=== PATIENT | male | born 1975 | race Caucasian/White ===

== ENCOUNTER 2021-08-17 11:47 | Emergency (ER) | payer OTHER, SELFPAY ==
[2021-08-17 13:16] VITALS: BP 143/97; PULSE 99; RESP 18; TEMP 36.3; O2SAT 100
--- NOTE | 2021-08-17 13:48 | ED.URI ---
HPI - URI/Sore Throat General Chief Complaint: Upper Respiratory Infection Stated Complaint: cough,fatigue,dizziness Time Seen by Provider: 08/17/21 13:49 Source: patient, RN notes reviewed and old records reviewed Mode of arrival: ambulatory Limitations: no limitations History of Present Illness HPI Narrative: 46-year-old male presents to [facility] with complaints of cough, fatigue, headache, some sinus drainage and congestion with pressure. Patient states had Covid on July 28 he was tested on the and he was negative but started feeling bad on the so maintained quarantine and worked from home. He states that cough continues with fatigue, sinus congestion pressure and drainage as main complaints. Patient has had COVID vaccinations and booster and also flu shot.Patient has been taking Mucinex, Tylenol and Flonase for his symptoms. MD elicited complaint: cough and other (Fatigue and dizziness, sinus drainage) Related Data Home Medications Medication Instructions Recorded Confirmed desvenlafaxine succinate 25 mg PO DAILY 08/17/21 08/17/21 Allergies Allergy/AdvReac Type Severity Reaction Status Date / Time No Known Allergies Allergy Mild Verified 08/17/21 13:59 Review of Systems Review of Systems: CONSTITUTIONAL: Denies fever, chills, or sweats. EYES: Denies visual changes, redness, or discharge. ENT: Positive for rhinorrhea, congestion,sinus pain and pressure, sore throat, no otalgia. CARDIOVASCULAR: Denies chest pain, palpitations, or edema. RESPIRATORY:Positive for cough denies dyspnea. GASTROINTESTINAL: Denies abdominal pain, nausea, vomiting, or diarrhea. GENITOURINARY: Denies dysuria or hematuria. SKIN: Denies rash or itching. MUSCULOSKELETAL: Denies back pain, joint pain, or myalgia.reports fatigue NEUROLOGIC: Positive for headache,no numbness, or weakness. PSYCHIATRIC: Positive history of anxiety or depression. All systems reviewed & are unremarkable except as noted in HPI and below PMFSH Past Medical History Medical History (Updated 08/17/21 @ 23:21 by Rubia Davis NP) Anxiety and depression GERD (gastroesophageal reflux disease) Migraine Sleep apnea, unspecified Surgical History Surgical History (Updated 08/17/21 @ 23:18 by Rubia Davis NP) History of surgery on arm left Family History Family History Father Hypertension Social History Social History Smoking status: Never smoker Alcohol intake: current Comments At time of signature, agree with nursing past medical, surgical, social and family history. There is no relevant family history pertinent to the presenting complaint Exam Narrative: GENERAL:Ill-appearing, well-nourished, and in no acute distress. HEAD: Normocephalic, atraumatic. EYES: PERRLA and EOMI. ENT: Nares red with swollen turbinates, clear rhinorrhea no epistaxis. Mucous membranes moist.TM's normal with good light reflex, throat red with no lesions or exudates or tonsil enlargement post nasal drainage present. NECK: Supple.no lymphadenopathy CHEST: Clear to auscultation. No respiratory distress.cough harsh with SAO2 100% on room air. HEART: Regular rate and rhythm. No murmur heard. Normal peripheral pulses. ABDOMEN: Soft, nontender, nondistended, normal active bowel sounds. EXTREMITIES: Normal range of motion. No edema. SKIN: Warm, dry, no rash. NEURO: No focal deficits. Alert and oriented x3. Course Course Level of Care: Express Care Visit Vital Signs Vital signs: Vital Signs Temperature 36.3 C L 08/17/21 13:16 Pulse Rate 99 08/17/21 13:16 Respiratory Rate 18 08/17/21 13:16 Blood Pressure 143/97 H 08/17/21 13:16 Pulse Oximetry 100 08/17/21 13:16 Temperature 36.3 C L 08/17/21 13:16 Pulse Rate 99 08/17/21 13:16 Respiratory Rate 18 08/17/21 13:16 Blood Pressure 143/97 H 08/17/21 13:16 Pulse Oximetry
== END 2021-08-17 14:30 | disposition home or self-care (01) ==
PROVIDERS: Emergency Provider Registered Nurse; PCP Family Medicine
DX: R05.9 Cough, unspecified (principal); J01.40 Acute pansinusitis, unspecified; Z20.822 Contact with and (suspected) exposure to COVID-19; K21.9 Gastro-esophageal reflux disease without esophagitis; G47.30 Sleep apnea, unspecified; F32.9 Major depressive disorder, single episode, unspecified
CPT/HCPCS: 87426; 99213; C9803; G0463

== ENCOUNTER 2022-01-21 10:34 | Emergency (ER) | payer OTHER, SELFPAY ==
--- NOTE | ~2022-01-21 | XR_ITS ---
EXAMINATION: XR abdomen obstructive series DATE: 01/21/2022 11:53 INDICATION: Right abdominal pain. TECHNIQUE: Upright and supine views of the abdomen on 3 radiographs were obtained. COMPARISON: Abdomen radiographs 07/31/2006 FINDINGS: There are no dilated loops of bowel. There is a moderate volume of stool in the colon. Calc ifications in the pelvis are likely phleboliths. No free intraperitoneal gas. IMPRESSION: 1. Normal bowel gas pattern. Reviewed, dictated and finalized at location B.
[2022-01-21 11:07] VITALS: BP 140/89; PULSE 99; RESP 18; TEMP 37.3; O2SAT 99
--- NOTE | 2022-01-21 11:11 | ED.ABDPAIN ---
HPI - Abdominal Pain General Chief Complaint: Abdominal Pain Stated Complaint: abdominal pain Time Seen by Provider: 01/21/22 11:12 Source: patient Mode of arrival: ambulatory Limitations: no limitations History of Present Illness HPI narrative: Mr. Cortez is a 46-year-old male patient presenting to the clinic today with complaints of right lower quadrant abdominal pain x5 days He reports the pain improved over the last 2 days but got worse today. He reports that the pain is a dull ache into the right lower quadrant. States when he palpates his abdomen it hurts in the right lower quadrant and some in the right upper quadrant. He reports having normal bowel movements. Last bowel movement was this morning. No blood in his stools. He denies any fever or chills. He denies any nausea, vomiting, or diarrhea. He is passing gas. Related Data Home Medications Medication Instructions Recorded Confirmed desvenlafaxine succinate 50 mg 1 tablet PO DAILY 01/21/22 01/21/22 tablet,extended release 24 hr Allergies Allergy/AdvReac Type Severity Reaction Status Date / Time No Known Allergies Allergy Mild Verified 01/21/22 11:03 Review of Systems Review of Systems: Pertinent positives per HPI. Patient denies any fever, chills, rash, headache, visual changes, dizziness, cough, runny nose, sore throat, shortness of breath, chest pain, palpitations, nausea, vomiting, diarrhea, constipation, or any urinary issues. [facility] Past Medical History Medical History Anxiety and depression GERD (gastroesophageal reflux disease) Migraine Sleep apnea, unspecified Surgical History Surgical History History of surgery on arm left Family History Family History Father Hypertension Social History Social History Smoking status: Never smoker Alcohol intake: current Comments At the time of my signature, I reviewed and agree with the nursing past medical, surgical, social, and family history. There is no relevant family history pertinent to the patient complaint. Exam Narrative: General: Well-developed, obese, in no apparent distress. Head: Normocephalic, atraumatic. Cardio: Regular rate and rhythm, s1 and s2 normal, no murmur appreciated. Resp: Clear to auscultation bilaterally, no rhonchi, rales, wheezing or rubs. Abdomen: Soft, pliable, bowel sounds present in all quadrants, tender to palpation over the right lower quadrant and mildly over the right upper quadrant, no organomegly, no CVAT tenderness. Course Course Emergency Course: Portions of this record may have been created with voice recognition software. Level of Care: Express Care Visit Vital Signs Vital signs: Vital Signs Temperature 37.3 C 01/21/22 11:07 Pulse Rate 99 01/21/22 11:07 Respiratory Rate 18 01/21/22 11:07 Blood Pressure 140/89 01/21/22 11:07 Pulse Oximetry 99 01/21/22 11:07 Oxygen Delivery Room Air 01/21/22 11:07 Temperature 37.3 C 01/21/22 11:07 Pulse Rate 99 01/21/22 11:07 Respiratory Rate 18 01/21/22 11:07 Blood Pressure 140/89 01/21/22 11:07 Pulse Oximetry 99 01/21/22 11:07 Oxygen Delivery Room Air 01/21/22 11:07 Vital signs reviewed Transfer Transfered to: [facility]: Other (Private car) Transfer rationale: Right lower quadrant abdominal pain rule out appendicitis Accepting physician: Dr. Locke Transfer comments: Transferred via private car MDM - Abdominal Pain MDM Narrative Medical decision making narrative: At the time of visit patient is resting comfortably on the exam table. He is reporting right lower quadrant pain approximately a 5 out of 10 currently dull aching. UA was obtained and showed a trace of protein however no
== END 2022-01-21 12:23 | disposition short-term general hospital (02) ==
PROVIDERS: Emergency Provider Nurse Practitioner Family; PCP Family Medicine
DX: R10.31 Right lower quadrant pain (principal); K21.9 Gastro-esophageal reflux disease without esophagitis; G47.30 Sleep apnea, unspecified; F41.9 Anxiety disorder, unspecified; F32.A Depression, unspecified
CPT/HCPCS: 74019; 81003; 99213; G0463

== ENCOUNTER 2022-01-21 12:37 | Emergency (ER) | payer OTHER, SELFPAY ==
--- NOTE | ~2022-01-21 | US_ITS ---
EXAMINATION: US abdomen limited DATE: 01/21/2022 16:06 INDICATION: Right abdominal pain. TECHNIQUE: Multiple grayscale and Doppler ultrasound images of the abdomen were obtained. COMPARISON: CT abdomen and pelvis 01/21/2022 FINDINGS: The visualized portions of the head and body of the pancreas are normal. There is diffuse h epatic steatosis. No liver surface nodularity. There is normal flow in main portal vein. The gallblad juhi is normal in size. No gallstones or gallbladder wall thickening. There was no sonographic Lee sign. The common duct is normal and measures 4 mm. IMPRESSION: 1. Diffuse hepatic steatosis. Reviewed, dictated and finalized at location B.
--- NOTE | ~2022-01-21 | CT_ITS ---
EXAMINATION: CT abdomen pelvis wo con DATE: 01/21/2022 14:55 INDICATION: Right lower quadrant abdominal pain TECHNIQUE: Computed tomography (CT) of the abdomen and pelvis was performed without intravenous contr ast. Automated exposure control and iterative reconstruction technique were employed. Exam dose: 124 0.08 mGy-cm total exam DLP. COMPARISON: 01/21/2022 obstructive series and or FINDINGS: Bilateral calcified pulmonary lungs. Included lower lung zones are clear of infiltrate or c onsolidation. Normal heart size. No pericardial or pleural effusion. The liver, gallbladder, bile ducts, spleen are unremarkable. There is some peripancreatic fat stranding in the region of the uncinate process and pancreatic head. Pancreatitis is not excluded. Clinical correlation is advised. Normal morphology of the adrenal glands. 9 mm exophytic cyst of the left kidney anterior upper pole. Kidneys otherwise appear unremarkable. No urinary tract calculus or hydroureteronephrosis. The urinary bladder is unremarkable. There is prost ate enlargement and calcifications. Small fat-containing left inguinal hernia. Normal caliber of the abdominal aorta. No intraperitoneal or retroperitoneal or pelvic mass lesion or adenopathy or ascites. Normal appendix. No bowel obstruction, bowel wall thickening, pneumatosis or intraperitoneal free air . Bilateral L5 pars interarticularis defects with grade 1 anterolisthesis and posterior disc bulging at L5-S1. No suspicious osteolytic or osteoblastic lesions. IMPRESSION: Peripancreatic fat stranding that the [place] head and uncinate process; recommend clinica l correlation for possible pancreatitis 9 mm left renal exophytic cyst Normal appendix Bilateral L5 pars interarticularis defects with grade 1 anterolisthesis and posterior disc bulging at L5-S1 Small fat-containing left inguinal hernia Reviewed, dictated and finalized at Location [facility]. Reviewed, dictated and finalized at location A. IMPRESSION: Peripancreatic fat stranding that the [place] head and uncinate proc ess; recommend clinical correlation for possible pancreatitis 9 mm left renal exophytic cyst Normal appendix Bilateral L5 pars interarticularis defects with grade 1 anterolisthesis and pos terior disc bulging at L5-S1 Small fat-containing left inguinal hernia
[2022-01-21 12:46] VITALS: BP 145/94; PULSE 95; RESP 20; TEMP 36.7; O2SAT 98
[2022-01-21 12:52] LABS: Basophils Percent Auto 0.4 % (0.2-1.2); Eosinophils Absolute Auto 0.2 K/mm3 (0-0.3); Eosinophils Percent Auto 2.9 % (0-4.4); Hematocrit 44.7 % (42.0-52.0); Hemoglobin 15.3 g/dL (14.0-18.0); Immature Granulocyte Absolute 0.01 K/mm3 (0.00-0.031); Immature Granulocyte Percent A 0.2 % (0-0.5); Lymphocytes Absolute Auto 1.09 K/mm3 (0.9-3.2); Lymphocytes Percent Auto 21.4 % (18.3-44.2); Mean Corpuscular HGB Conc 34.2 g/dl (32-36); Mean Corpuscular Hemoglobin 29.7 pg (26-34); Mean Corpuscular Volume 86.8 fl (80-100); Mean Platelet Volume 10.7 fl (7.4-10.4); Monocytes Absolute Auto 0.3 K/mm3 (0.1-0.6); Monocytes Percent Auto 6.7 % (2.6-8.5); Neutrophils Absolute Auto 3.5 K/mm3 (1.3-6.7); Neutrophils Percent Auto 68.4 % (45.5-73.1); Platelet Count Result 156 k/mm3 (150-375); Red Blood Count 5.15 M/mm3 (4.6-6.20); Red Cell Distribution Width 12.7 % (11.5-14.5); White Blood Count 5.1 K/mm3 (4.5-10.0)
[2022-01-21 13:07] LABS: Alanine Aminotransferase 36 U/L (6-50); Albumin Level 4.5 g/dL (3.5-5.1); Alkaline Phosphatase 71 U/L (38-126); Anion Gap 5 mmol/L (8-16); Aspartate Amino Transferase 27 U/L (17-59); Bilirubin,Total 0.3 mg/dL (0.2-1.3); Blood Urea Nitrogen 15 mg/dL (9-20); Calcium 9.1 mg/dL (8.4-10.2); Carbon Dioxide 28 mmol/L (22-30); Chloride 106 mmol/L (98-107); Estimated Glomerular Filt Rate > 60; Glucose 96 mg/dL (65-110); Lipase 126 U/L (23-300); Sodium 139 mmol/L (137-145)
[2022-01-21 13:14] LABS: Appearance Urine Clear (Clear); Bilirubin Urine Negative (Negative); Blood Urine Negative (Negative); Color Urine Yellow (Yellow); Glucose Urine UA Negative (Negative); Ketones Urine Trace mg/dL (Negative); Leukocyte Esterase Ur Negative LEU/UL (Negative); Nitrate Urine Negative (Negative); Protein Urine Negative (Negative); Specific Grav Ur 1.025 (1.001-1.035); Urobilinogen Urine 0.2 mg/dL (<2.0); pH Urine 6.5 (5.0-9.0)
[2022-01-21 13:16] LABS: Add Urine Microscopic? YES
[2022-01-21 13:57] LABS: Mucus Urine Rare /lpf
--- NOTE | 2022-01-21 16:21 | ED.ABDPAIN ---
HPI - Abdominal Pain General Chief Complaint: Abdominal Pain Stated Complaint: abd pain Time Seen by Provider: 01/21/22 14:11 Source: patient Mode of arrival: ambulatory Limitations: no limitations History of Present Illness HPI narrative: 46-year-old male presents today from urgent care with complaints of right lower quadrant pain since Friday of last week. Patient states pain improved over the weekend but has increased today. Upon exam pain rated a 2 out of a 10 but patient still concerned as this is not normal for him. Patient denies any fevers, nausea, vomiting, or diarrhea. Patient denies any abdominal surgeries. Patient does know he has an umbilical hernia and was concerned that this could be the issue 2. Related Data Home Medications Medication Instructions Recorded Confirmed desvenlafaxine succinate 50 mg 1 tablet PO DAILY 01/21/22 01/21/22 tablet,extended release 24 hr Allergies Allergy/AdvReac Type Severity Reaction Status Date / Time No Known Allergies Allergy Mild Verified 01/21/22 11:03 Review of Systems Review of Systems: CONSTITUTIONAL: Denies fever, chills, or sweats. EYES: Denies visual changes, redness, or discharge. ENT: Denies rhinorrhea, congestion, sore throat, or otalgia. CARDIOVASCULAR: Denies chest pain, palpitations, or edema. RESPIRATORY: Denies cough or dyspnea. GASTROINTESTINAL: Right lower quadrant pain since Friday intermittently and right upper abdominal pain. Denies nausea, vomiting, or diarrhea. GENITOURINARY: Denies dysuria or hematuria. SKIN: Denies rash or itching. MUSCULOSKELETAL: Denies back pain, joint pain, or myalgia. NEUROLOGIC: Denies headache, numbness, dizziness, or weakness. PSYCHIATRIC: Denies anxiety or depression. [facility] Past Medical History Medical History Anxiety and depression GERD (gastroesophageal reflux disease) Migraine Sleep apnea, unspecified Surgical History Surgical History History of surgery on arm left Family History Family History Father Hypertension Social History Social History Smoking status: Never smoker Alcohol intake: current Exam Narrative: GENERAL: Well-appearing, well-nourished, and in no acute distress. HEAD: Normocephalic, atraumatic. EYES: PERRLA and EOMI. NECK: Supple. No adenopathy or masses. No carotid bruits or JVD CHEST: Clear to auscultation. No respiratory distress. No wheezes rales or rhonchi HEART: Regular rate and rhythm. No murmur heard. Normal peripheral pulses. ABDOMEN: Soft, nontender, nondistended, normal active bowel sounds. EXTREMITIES: Normal range of motion. No edema. SKIN: Warm, dry, no rash. NEURO: No focal deficits. Alert and oriented x3. PSYCH: Normal mood and affect. Course Course Emergency Course: Lab work and imaging reviewed with patient. Patient aware of findings and aware to be discharged home with plan follow-up with primary if symptoms persist. Vital Signs Vital signs: Vital Signs Temperature 36.7 C 01/21/22 12:46 Pulse Rate 95 01/21/22 12:46 Respiratory Rate 20 01/21/22 12:46 Blood Pressure 145/94 H 01/21/22 12:46 Pulse Oximetry 98 01/21/22 12:46 Oxygen Delivery Room Air 01/21/22 12:46 Temperature 36.7 C 01/21/22 12:46 Pulse Rate 95 01/21/22 12:46 Respiratory Rate 20 01/21/22 12:46 Blood Pressure 145/94 H 01/21/22 12:46 Pulse Oximetry 98 01/21/22 12:46 Oxygen Delivery Room Air 01/21/22 12:46 MDM - Abdominal Pain MDM Narrative Medical decision making narrative: 46-year-old male HPI as noted. Right lower abdominal pain intermittently since Friday. Patient denies fever. Patient also noted some right upper abdominal pain unsure when it started. WBCs 5.1 hemoglobin 15.3 sodium 139, potassium 4, BUN 15, G
== END 2022-01-21 16:34 | disposition home or self-care (01) ==
PROVIDERS: Emergency Medicine; Emergency Provider Nurse Practitioner Family; PCP Family Medicine
DX: R10.31 Right lower quadrant pain (principal)
CPT/HCPCS: 36415; 74019; 74176; 76705; 80053; 81001; 81003; 83690; 85025; 99284

== ENCOUNTER 2023-05-09 10:36 | Emergency (ER) | payer OTHER, SELFPAY ==
--- NOTE | ~2023-05-09 | XR_ITS ---
EXAMINATION: XR finger 4th LT min 2V DATE: 05/09/2023 11:22 INDICATION: Left hand fourth digit injury. TECHNIQUE: 4 views of left hand fourth digit were obtained. COMPARISON: None. FINDINGS: Bone alignment is normal. No fracture. Joint spaces are normal. IMPRESSION: 1. No fracture. Reviewed, dictated and finalized at location E. IMPRESSION: 1. No fracture.
[2023-05-09 10:50] VITALS: BP 136/93; PULSE 85; RESP 16; TEMP 36.3; O2SAT 100
--- NOTE | 2023-05-09 10:52 | ED.GENADULT ---
HPI - General Adult General Chief complaint: Extremity Injury, Upper Stated complaint: nail discoloration,rt eye swelling Time Seen by Provider: 05/09/23 10:52 Source: patient, RN notes reviewed and old records reviewed Mode of arrival: ambulatory Limitations: no limitations History of Present Illness HPI narrative: 47-year-old male presents to the [facility] with blood under the fingernail of the left ring finger. States they do working on a car yesterday when he hit between the range in a car part. Tenderness. Also has some red irritated skin under the right eye. Skin is dry, not res, not warm, no fluctuance. Onset (ago): day(s) (1) Related Data Home Medications Medication Instructions Recorded Confirmed desvenlafaxine succinate 50 mg 1 tablet PO DAILY 01/21/22 05/09/23 tablet,extended release 24 hr buspirone 5 mg tablet 5 mg DIRECTED 05/09/23 05/09/23 Allergies Allergy/AdvReac Type Severity Reaction Status Date / Time No Known Allergies Allergy Mild Verified 01/21/22 11:03 Review of Systems Review of Systems: All systems reviewed & are unremarkable except as noted in HPI and below Constitutional: Constitutional: Reports no additional constitutional complaints Eyes: Eyes: Reports no additional eye complaints ENT: Reports system reviewed and no additional complaints, except as documented Cardiovascular: Cardiovascular: Reports no additional cardiovascular complaints, Denies chest pain and Denies dyspnea Respiratory: Respiratory: Reports no additional respiratory complaints, Denies chest congestion, Denies cough and Denies dyspnea Gastrointestinal: Gastrointestinal: Reports no additional gastrointestinal complaints, Denies abdominal pain, Denies nausea and Denies vomiting Musculoskeletal: Musculoskeletal: Reports as per HPI Integumentary/Breasts: Skin/Breast: Reports as per HPI Neurologic: Reports system reviewed and no additional complaints, except as documented Psychiatric: Psychiatric: Reports no additional psychiatric complaints Allergic/Immunologic: Allergic/Immunologic: Reports no additional allergic/immunologic complaints [facility] Past Medical History Medical History Anxiety and depression GERD (gastroesophageal reflux disease) Migraine Sleep apnea, unspecified Surgical History Surgical History History of surgery on arm left Family History Family History Father Hypertension Social History Social History Smoking status: Never smoker Alcohol intake: current Comments At the time of my signature, I reviewed and agree with the nursing past medical, surgical, social, and family history. There is no relevant family history pertinent to the patient complaint. Exam Const: General: cooperative, healthy appearing, comfortable, no acute distress, well developed, alert and well nourished Nutritional Appearance: well nourished Orientation/consciousness: patient oriented x3 Limitations: no limitations HENMT: Head: normal to inspection Head images: 1. [place] dry skin, no increased warmth, dry, no fluctuance, not raised Ears: hearing grossly normal bilaterally and external ears normal Face/Nose/Sinus: Normal external nose present, Normal nares present, Normal nasal mucous membranes and turbinates present, normal facial exam, face symmetric and No sinus tenderness Face and sinus: normal facial exam and face symmetric Mouth: Yes Normal oral and palatal mucosa present, Yes lip normal and Yes moist mucous membranes Throat: posterior oropharynx normal and uvula midline Eyes: General: appearance normal, both eyes and all related structures Alignment and Position: alignment normal Periorbital: periorbital findings normal Pupils: Equal, round and reactive pupils present EO
[2023-05-09] MEDS: TETANUS,DIPHTHERIA,AC PERTUSSIS ADULT (0.5 ML) BOOSTRIX IM (11:12)
== END 2023-05-09 12:05 | disposition home or self-care (01) ==
PROVIDERS: Emergency Provider Nurse Practitioner; PCP Family Medicine
DX: S60.142A Contusion of left ring finger with damage to nail, initial encounter (principal); L30.9 Dermatitis, unspecified; Z23 Encounter for immunization; W22.8XXA Striking against or struck by other objects, initial encounter
CPT/HCPCS: 11740; 73140; 90471; 90715; 99213; G0463